=== PATIENT | female | born 1955 | race Caucasian/White ===

== ENCOUNTER 2018-08-26 08:10 | Day surgery (SDC) | payer OTHER | END 2018-08-26 17:50 | disposition home or self-care (01) | LOC: CIR.AMB 08:10 | DX: K64.8 Other hemorrhoids (principal); K64.4 Residual hemorrhoidal skin tags ==

== ENCOUNTER 2020-02-25 05:40 | Day surgery (SDC) | payer OTHER | END 2020-02-25 10:15 | disposition home or self-care (01) | LOC: AMB-ENDOS 05:40 | PROVIDERS: ATTEND Colon & Rectal Surgery | DX: K62.89 Other specified diseases of anus and rectum (principal); K64.0 First degree hemorrhoids; Z20.828 Contact with and (suspected) exposure to other viral communicable diseases; Z12.11 Encounter for screening for malignant neoplasm of colon ==